=== PATIENT | male | born 1985 | race Caucasian/White ===

== ENCOUNTER 2017-08-31 11:55 | Emergency (ER) | payer SELFPAY ==
[2017-08-31] MEDS: HYDROCODONE/APAP (10/325) TAB PO (12:43)
== END 2017-08-31 14:40 | disposition home or self-care (01) ==
LOC: FTE 11:55
DX: S99.921A Unspecified injury of right foot, initial encounter (principal); S99.922A Unspecified injury of left foot, initial encounter; V03.10XA Pedestrian on foot injured in collision with car, pick-up truck or van in traffic accident, initial encounter
CPT/HCPCS: 73630; 73630-50; 99284-25